=== PATIENT | female | born 2000 | race African-American/Black ===

== ENCOUNTER 2021-07-30 19:56 | Inpatient (IN) ==
[2021-07-30] MEDS ORDERED: ONDANSETRON 4 MG/2 ML VIAL IV PRN (20:12)
[2021-07-30] MEDS ORDERED: OXYTOCIN/LR 20 UNIT/1,000 ML BAG IV ONE (20:12)
[2021-07-30] MEDS ORDERED: METHYLERGONOVINE 0.2 MG/1 ML AMP IM PRN (20:12)
[2021-07-30] MEDS ORDERED: CARBOPROST TROMETHAMINE 250 MCG/ML AMP IM PRN (20:12)
[2021-07-30] MEDS ORDERED: miSOPROStoL 200 MCG TABLET RECTAL PRN (20:12)
[2021-07-30] MEDS ORDERED: TRANEXAMIC ACID 1,000 MG in SODIUM CHLORIDE 0.9% 100 ML IV PRN (20:12)
[2021-07-30 21:06] LABS: Basophils % 0.1 % (0.0-0.8); Eosinophils % 0.1 % (0.00-10.9); Hematocrit 25.3 VOL% (35.7-47.0); Hemoglobin 7.3 GM/DL (12.0-16.0); Immature Granulocytes % 0.4 %; Immature Granulocytes Absolute 0.03 #; Lymphocytes # 1.9 10*3/uL (1.4-4.0); Lymphocytes % 26.8 % (21.3-54.2); Mean Corpuscular HGB Conc 28.9 GM/DL (32-36); Mean Corpuscular Volume 70.9 FL (87-102); Mean Platelet Volume 10.9 FL (9.6-12.0); Monocytes % 13.5 % (1.7-12.7); NRBC # 0.03 10*3/uL; Neutrophils % 59.1 % (38.7-73.9); Platelet Count 216 T/CUMM (130-400); Red Blood Count 3.57 MC/CUMM (3.8-5.5); White Blood Count 7.1 T/CUMM (4-12)
[2021-07-30 21:17] LABS: Albumin 2.6 G/DL (3.4-5.0); Bilirubin,Total 0.7 MG/DL (0.20-1.00); Calcium 8.7 MG/DL (8.5-10.1); Osmolality,Calculated 272.7 MOS/KG (273-304); Potassium 3.2 MMOL/L (3.5-5.1); Total Protein 6.5 G/DL (6.4-8.2)
[2021-07-30] MEDS ORDERED: SODIUM CHLORIDE 0.9% 1,000 ML IV PRN (22:46)
[2021-07-30] MEDS: LACTATED RINGERS 1,000 ML IV SCH (23:25)
[2021-07-31] MEDS ORDERED: BUTORPHANOL 2 MG/ML VIAL IV PRN (04:05)
[2021-07-31] MEDS ORDERED: BUTORPHANOL 1 MG/ML VIAL IV PRN (04:05)
[2021-07-31] MEDS ORDERED: MEPERIDINE 50 MG/1 ML VIAL IV PRN (04:07)
[2021-07-31] MEDS: LACTATED RINGERS 1,000 ML IV SCH ×3 (05:05→15:56)
[2021-07-31] MEDS ORDERED: ePHEDrine 50 MG/ML VIAL IV PRN (08:13)
[2021-07-31] MEDS ORDERED: PROMETHAZINE 25 MG/1 ML VIAL IM ONE (08:13)
[2021-07-31] MEDS ORDERED: CITRIC ACID/SODIUM CITRATE 30 ML UDCUP PO ONE (08:13)
[2021-07-31] MEDS ORDERED: FAMOTIDINE 20 MG/2 ML VIAL IV ONE (08:13)
[2021-07-31] MEDS ORDERED: hydrOXYzine HCL 25 MG/1 ML VIAL IM PRN (08:13)
[2021-07-31] MEDS ORDERED: ONDANSETRON 4 MG/2 ML VIAL IV ONE (08:13)
[2021-07-31] MEDS ORDERED: diphenhydrAMINE 50 MG/1 ML VIAL IV PRN ×2 (08:13)
[2021-07-31] MEDS ORDERED: NALOXONE 0.4 MG/ML VIAL IV PRN (08:13)
[2021-07-31] MEDS ORDERED: OXYTOCIN/LR 20 UNIT/1,000 ML BAG IV SCH (09:00)
[2021-07-31] MEDS: fentaNYL 2 MCG/ROPIV 0.2% EPID 100 ML EPIDURAL SCH ×2 (09:02→17:01)
[2021-07-31 09:41] LABS: Bilirubin,Urine Negative (Negative); Blood, Urine Trace mg/dL (Negative); Glucose,Urine (UA) Negative (Negative); Ketones,Urine Negative (Negative); Mucus,Urine Occasional /LPF (Occasional); Nitrite,Urine Negative (Negative); Protein,Urine 30 mg/dL (Negative); RBC,Urine 9 /HPF (0-4); Squamous Epithelial Cell,Urine Occasional /HPF (0-10); Urine Appearance Clear (Clear); Urine Color Yellow (Yellow)
[2021-07-31] MEDS ORDERED: CLINDAMYCIN INJ 900 MG/50 ML PREMIX IV ONE (16:15)
[2021-07-31] MEDS ORDERED: ACETAMINOPHEN 500 MG TABLET PO ONE (16:24)
[2021-07-31] MEDS ORDERED: ACETAMINOPHEN 325 MG/10.15 ML UDCUP PO ONE (16:28)
[2021-07-31] MEDS: AMPICILLIN/SULBACTAM 3,000 MG in SODIUM CHLORIDE 0.9% 100 ML IV SCH (16:49)
[2021-07-31] MEDS ORDERED: ONDANSETRON 4 MG/2 ML VIAL ONE (17:05)
[2021-07-31] MEDS ORDERED: LIDOCAINE MPF 2% /EPI 20 ML VIAL ONE (17:05)
[2021-07-31] MEDS ORDERED: PHENYLEPHRINE 1 MG/10 ML SYRINGE IV ONE ×3 (17:17→18:20)
[2021-07-31] MEDS ORDERED: propofoL 200 MG/20 ML VIAL IV ONE (17:33)
[2021-07-31] MEDS ORDERED: SUCCINYLCHOLINE 200 MG/10 ML VIAL ONE (17:33)
[2021-07-31] MEDS ORDERED: LIDOCAINE 2% 5 ML VIAL ONE (17:33)
[2021-07-31] MEDS ORDERED: SEVOFLURANE 1 UNIT/15 MINUTE INH ONE ×2 (17:33→18:20)
[2021-07-31] MEDS ORDERED: ROCURONIUM 50 MG/5 ML VIAL IV ONE (17:33)
[2021-07-31] MEDS ORDERED: OXYTOCIN 10 UNIT/ML VIAL ONE (17:41)
[2021-07-31] MEDS ORDERED: DEXAMETHASONE 4 MG/1 ML VIAL ONE (17:49)
[2021-07-31] MEDS ORDERED: KETOROLAC 30 MG/1 ML VIAL ONE (17:49)
[2021-07-31] MEDS ORDERED: ACETAMINOPHEN INJ 1,000 MG/100 ML VIAL IV ONE (17:49)
[2021-07-31 17:51] LABS: Cord Arterial Blood HCO3 19.5 MMOL/L
[2021-07-31] MEDS ORDERED: GLYCOPYRROLATE 0.4 MG/2 ML VIAL ONE ×2 (17:51→18:38)
[2021-07-31 17:53] LABS: Cord Venous Blood HCO3 19.3 MMOL/L; Cord Venous Blood PCO2 48.7 MMHG; Cord Venous Blood PO2 20.4
[2021-07-31] MEDS ORDERED: NEOSTIGMINE 10 MG/10 ML VIAL ONE (17:55)
[2021-07-31] MEDS ORDERED: SODIUM CHLORIDE 0.9% 1,000 ML IV ONE (18:05)
[2021-07-31] MEDS ORDERED: buprenorphine HCL 0.3 MG/ML VIAL ONE (18:12)
[2021-07-31] MEDS ORDERED: HYDROCORTISONE 2.5% RECTAL CREAM 30 GM TUBE TOP PRN (19:25)
[2021-07-31] MEDS ORDERED: BISACODYL 10 MG SUPP RECTAL PRN (19:25)
[2021-07-31] MEDS ORDERED: ACETAMINOPHEN 325 MG TABLET PO PRN (19:25)
[2021-07-31] MEDS ORDERED: RHO(D) IMMUNE GLOBULIN 300 MCG SYRINGE IM ONE (19:25)
[2021-07-31] MEDS ORDERED: WITCH HAZEL PADS 100/JAR TOP PRN (19:25)
[2021-07-31] MEDS ORDERED: ONDANSETRON 4 MG/2 ML VIAL IV PRN (19:25)
[2021-07-31] MEDS ORDERED: BENZOCAINE 20%/MENTHOL 0.5% SPRAY 56 GM CAN TOP PRN (19:25)
[2021-07-31] MEDS ORDERED: OXYTOCIN/LR 20 UNIT/1,000 ML BAG IV ONE (19:25)
[2021-07-31] MEDS ORDERED: MEASLES/MUMPS/RUBELLA VACCINE 0.5 ML VIAL SUBCUT ONE (19:25)
[2021-07-31] MEDS ORDERED: DIPH/TET/ACEL PERT BOOSTER VACCINE 0.5 ML VIAL IM ONE (19:25)
[2021-07-31] MEDS ORDERED: LANOLIN 50% CREAM 0.3 OZ TUBE TOP PRN (19:25)
[2021-07-31] MEDS ORDERED: oxyCODONE/ACETAMINOPHEN 5-325 MG TABLET PO PRN ×2 (19:25)
[2021-07-31] MEDS ORDERED: IBUPROFEN 800 MG TABLET PO PRN (19:25)
[2021-07-31] MEDS ORDERED: HYDROmorphone 1 MG/1 ML SYRINGE IV PRN (19:27)
[2021-07-31] MEDS ORDERED: DOCUSATE SODIUM 100 MG CAPSULE PO SCH (21:00)
[2021-07-31] MEDS ORDERED: BENZOCAINE/MENTHOL LOZENGE 18/BOX PO PRN (23:06)
[2021-08-01] MEDS ORDERED: ACETAMINOPHEN 500 MG TABLET PO SCH
[2021-08-01] MEDS ORDERED: KETOROLAC 30 MG/1 ML VIAL IV SCH (00:01)
[2021-08-01] MEDS ORDERED: HYDROCORTISONE 1% CREAM 28 GM TUBE TOP PRN (01:09)
[2021-08-01] MEDS: AMPICILLIN/SULBACTAM 3,000 MG in SODIUM CHLORIDE 0.9% 100 ML IV SCH ×3 (01:28→17:02)
[2021-08-01] MEDS: POTASSIUM CHLORIDE 20 MEQ TABLET PO PRN ×4 (03:01→09:03)
[2021-08-01 04:38] LABS: Basophils % 0.1 % (0.0-0.8); Hematocrit 29.4 VOL% (35.7-47.0); Hemoglobin 8.8 GM/DL (12.0-16.0); Immature Granulocytes % 0.6 %; Immature Granulocytes Absolute 0.09 #; Lymphocytes # 0.5 10*3/uL (1.4-4.0); Lymphocytes % 2.9 % (21.3-54.2); Mean Corpuscular HGB Conc 29.9 GM/DL (32-36); Mean Corpuscular Volume 74.6 FL (87-102); Mean Platelet Volume 11.3 FL (9.6-12.0); Monocytes % 6.5 % (1.7-12.7); Neutrophils % 89.9 % (38.7-73.9); Platelet Count 149 T/CUMM (130-400); Red Blood Count 3.94 MC/CUMM (3.8-5.5); Red Cell Distribution Width 20.3 % (9.3-17.3); White Blood Count 15.8 T/CUMM (4-12)
[2021-08-01 04:59] LABS: Band Neutrophils 3 % (0-10); Eosinophils 1 % (0-10); Hypochromia Slight; Lymphocytes 3 % (20-55); Microcytosis Slight; Platelet Estimate Adequate; Total Cells Counted 100
[2021-08-01] MEDS ORDERED: MAGNESIUM HYDROXIDE SUSP 30 ML UDCUP PO PRN (06:45)
[2021-08-01] MEDS ORDERED: SIMETHICONE CHEW 80 MG TABLET PO PRN (06:45)
[2021-08-01] MEDS: ACETAMINOPHEN 500 MG TABLET PO SCH ×2 (06:53→12:43)
[2021-08-01] MEDS: KETOROLAC 30 MG/1 ML VIAL IV SCH ×2 (06:54→12:41)
[2021-08-01] MEDS ORDERED: FERROUS SULFATE 300 MG/5 ML UDCUP PO SCH (09:00)
[2021-08-01] MEDS: DOCUSATE SODIUM 100 MG/10 ML UDCUP PO SCH ×2 (09:02→21:13)
[2021-08-01] MEDS: FERROUS SULFATE 300 MG/5 ML UDCUP PO SCH (21:15)
[2021-08-02] MEDS: AMPICILLIN/SULBACTAM 3,000 MG in SODIUM CHLORIDE 0.9% 100 ML IV SCH (00:54)
[2021-08-02] MEDS: DOCUSATE SODIUM 100 MG/10 ML UDCUP PO SCH (08:04)
[2021-08-02] MEDS: FERROUS SULFATE 300 MG/5 ML UDCUP PO SCH (08:04)
[2021-08-02] MEDS ORDERED: IBUPROFEN 100 MG/5 ML UDCUP PO PRN (11:55)
[2021-08-02 15:20] VITALS: BP 113/76
== END 2021-08-02 18:30 | disposition home or self-care (01) | DRG 540 ==
LOC: N.LDOUT 19:56 → N.LD 19:57 → N.OB 07-31 22:25
PROVIDERS: ADMIT Specialist; ATTEND Specialist
PROC: LDCSECT (ICD-10-PCS; 2021-07-31 17:00)